=== PATIENT | male | born 1970 | race Caucasian/White ===

== ENCOUNTER 2019-04-12 10:20 | Emergency (ER) | payer MEDICAID ==
[~2019-04-12] VITALS: Ht 175.2 cm; Wt 83.9 kg
[~2019-04-12 10:20] MED LIST: LOPRESSOR25 MG PO; PREDNICOT10 MG PO; TOPROL XL25 MG PO; ZESTRIL10 MG PO
[2019-04-12 11:29] LABS: BASO % 0.5 % (0.0-1.0); EOS # 0.1 10*3/uL (0.0-0.4); EOS % 1.5 % (1.0-4.0); HEMATOCRIT 41.4 % (42.0-52.0); HEMOGLOBIN 13.7 g/dl (14.0-18.0); LYMPH # 2.3 10*3/uL (1.3-4.4); LYMPH % 29.2 % (27.0-41.0); MEAN CELL VOLUME 95.6 fl (80.0-94.0); MEAN CORPUSCULAR HGB 31.6 pg (27.0-31.0); MEAN CORPUSCULAR HGB CONC 33.1 g/dl (33.0-37.0); MEAN PLATELET VOLUME 9.3 fl (9.6-12.3); MONO # 0.7 10*3/uL (0.1-1.0); MONO % 8.6 % (3.0-9.0); NEUT # 4.8 10*3/uL (2.3-7.9); NEUT % 60.1 % (47.0-73.0); PLATELET COUNT AUTOMATED 289 10*3/uL (130-400); RED BLOOD COUNT 4.33 10*6/uL (4.50-5.90); RED CELL DISTRI WIDTH 13.2 % (0-14.5); WHITE BLOOD COUNT 7.9 10*3/uL (4.8-10.8)
[2019-04-12 11:44] LABS: ALBUMIN 3.9 gm/dl (3.1-4.5); ALKALINE PHOSPHATASE 88 U/L (45-117); BUN 12 mg/dl (7-24); CHLORIDE 107 mmol/L (98-107); LIPASE 105 U/L (73-393); POTASSIUM 3.9 mmol/L (3.5-5.1); SGOT/AST 7 IU/L (3-35); SGPT/ALT 17 U/L (12-78); SODIUM 140 mmol/L (136-145); TOTAL PROTEIN 7.4 gm/dL (6.4-8.2)
[2019-04-12 13:03] LABS: BILIRUBIN 1+ (NEGATIVE); BLOOD NEGATIVE (NEGATIVE); CLARITY CLOUDY (CLEAR); COLOR YELLOW (YELLOW); GLUCOSE NEGATIVE (NEGATIVE); KETONE NEGATIVE (NEGATIVE); LEUKO ESTERASE NEGATIVE (NEGATIVE); NITRITE NEGATIVE (NEGATIVE); SPECIFIC GRAVITY >= 1.030 (1.005-1.030); UROBILINOGEN 0.2 E.U./dl (0.2-1.0)
[2019-04-12 13:19] LABS: BACTERIA 1+; MUCOUS 3+
== END 2019-04-12 16:25 | disposition home or self-care (01) ==
LOC: ED 10:20
PROVIDERS: Emergency Medicine
DX: R10.13 Epigastric pain (principal); R63.4 Abnormal weight loss; I10 Essential (primary) hypertension; Z79.899 Other long term (current) drug therapy

== ENCOUNTER → 2019-04-18 | Day surgery (SDC) | payer MEDICAID ==
[~2019-04-18] VITALS: Ht 175.2 cm; Wt 83.9 kg
--- NOTE | ~2019-04-18 | O ---
[place], [place] OPERATIVE NOTE NAME: PETRONA UGALDE UNIT #: [id number] ROOM: DOCTOR: MARGIE SANTACRUZ,ADITYA BIRTHDATE: [birth year] DOS: 04/18/2019 INDICATIONS: The patient has presented with dysphagia, unable to swallow beyond his lower esophagus, food gets stuck. He is having the sensation of lower esophageal pressure. PROCEDURE: Today's procedure part of investigation is esophagoscopy plus biopsy. PREMEDICATION: Propofol. SCOPE: Olympus forward-viewing gastroscope Q10 video. REPORT: After putting the patient in left lateral position and application of lubricant to the scope, the scope was introduced. Thereafter, under direct visualization, advanced through the upper thoracic towards distal esophagus at esophagogastric junction high-grade stricture was noticed, passage of the scope is quite difficult and securities attorney to perforation. We need a narrow pediatric scope. Therefore, after a biopsy was obtained. The patient extubated, tolerated the procedure well. IMPRESSION: Distal esophageal stricture, status post biopsy. This area appears to be a dysplastic cell in it. Therefore, we could not negotiate the scope into the gastric pouch. After multiple tries, the patient extubated, tolerated the procedure well. IMPRESSION: High-grade distal esophageal stricture, ruling out dysplastic cell, status post biopsy. PLAN AND DISCUSSION: We are going to organize another endoscopic assessment with super narrow pediatric scope in another institution, diagnosis under investigation. ADITYA HANSON MD CM:OPRECORD:OPERATIVE NOTE [id number] ADITYA HANSON MD 04/18/19 1607 interface
[2019-04-18 13:29] VITALS: BP 145/86
[2019-04-18 14:15] VITALS: BP 116/77
[2019-04-18 15:44] VITALS: BP 138/87
[2019-04-18 15:59] VITALS: BP 151/91
[2019-04-18 16:14] VITALS: BP 146/91
== END | disposition home or self-care (01) ==
LOC: SDC 04-16 14:00
DX: K22.2 Esophageal obstruction (principal); I10 Essential (primary) hypertension; E66.9 Obesity, unspecified; Z68.34 Body mass index [BMI] 34.0-34.9, adult; Z79.899 Other long term (current) drug therapy; Z82.49 Family history of ischemic heart disease and other diseases of the circulatory system; Z80.8 Family history of malignant neoplasm of other organs or systems

== ENCOUNTER 2019-06-28 10:46 | Emergency (ER) | payer MEDICAID ==
[~2019-06-28] VITALS: Ht 175.2 cm; Wt 59.0 kg
[2019-06-28] MEDS ORDERED: PREDNISONE20 M1 PO (11:18)
== END 2019-06-28 11:28 | disposition home or self-care (01) ==
LOC: ED 10:46
DX: L27.0 Generalized skin eruption due to drugs and medicaments taken internally (principal); T36.1X5A Adverse effect of cephalosporins and other beta-lactam antibiotics, initial encounter; I10 Essential (primary) hypertension; Y92.89 Other specified places as the place of occurrence of the external cause

== ENCOUNTER 2019-07-07 06:59 | Emergency (ER) | payer MEDICAID ==
[~2019-07-07] VITALS: Ht 175.2 cm; Wt 54.4 kg
[~2019-07-07 06:59] MED LIST changes: +PREDNISONE20 M1 PO
[2019-07-07 08:01] LABS: BASO % 0.1 % (0.0-1.0); EOS % 0.1 % (1.0-4.0); HEMATOCRIT 39.4 % (42.0-52.0); LYMPH # 1.1 10*3/uL (1.3-4.4); LYMPH % 12.4 % (27.0-41.0); MEAN CELL VOLUME 89.5 fl (80.0-94.0); MEAN CORPUSCULAR HGB 29.5 pg (27.0-31.0); MEAN PLATELET VOLUME 8.9 fl (9.6-12.3); MONO # 0.9 10*3/uL (0.1-1.0); MONO % 10.1 % (3.0-9.0); NEUT # 6.9 10*3/uL (2.3-7.9); NEUT % 76.9 % (47.0-73.0); PLATELET COUNT AUTOMATED 375 10*3/uL (130-400); RED CELL DISTRI WIDTH 14.1 % (0-14.5); WHITE BLOOD COUNT 8.9 10*3/uL (4.8-10.8)
[2019-07-07 08:11] LABS: ACT PARTIAL THROMBO TIME 30.2 SECONDS (20.0-32.1)
[2019-07-07 08:17] LABS: ALKALINE PHOSPHATASE 653 U/L (45-117); BUN 14 mg/dl (7-24); CHLORIDE 95 mmol/L (98-107); CREATININE 0.83 mg/dL (0.70-1.30); LIPASE 244 U/L (73-393); POTASSIUM 3.9 mmol/L (3.5-5.1); SGOT/AST 40 IU/L (3-35); SGPT/ALT 93 U/L (12-78); SODIUM 132 mmol/L (136-145); TOTAL PROTEIN 6.8 gm/dL (6.4-8.2)
[2019-07-07 08:18] LABS: TROPONIN I < 0.015 ng/ml (<0.045)
== END 2019-07-07 09:10 | disposition left against medical advice (07) ==
LOC: ED 06:59
PROVIDERS: Emergency Medicine
DX: R11.2 Nausea with vomiting, unspecified (principal); C15.9 Malignant neoplasm of esophagus, unspecified; C16.9 Malignant neoplasm of stomach, unspecified; I10 Essential (primary) hypertension; Z88.1 Allergy status to other antibiotic agents

== ENCOUNTER 2019-07-12 07:36 | Emergency (ER) | payer OTHER ==
[~2019-07-12] VITALS: Ht 175.2 cm; Wt 54.4 kg
== END 2019-07-12 08:55 | disposition home or self-care (01) ==
LOC: ED 07:36
DX: T82.594A Other mechanical complication of infusion catheter, initial encounter (principal); I10 Essential (primary) hypertension; C15.9 Malignant neoplasm of esophagus, unspecified; C16.9 Malignant neoplasm of stomach, unspecified; C26.0 Malignant neoplasm of intestinal tract, part unspecified; Z88.1 Allergy status to other antibiotic agents; Y84.8 Other medical procedures as the cause of abnormal reaction of the patient, or of later complication, without mention of misadventure at the time of the procedure; Y92.89 Other specified places as the place of occurrence of the external cause

== ENCOUNTER 2019-09-28 08:56 | Emergency (ER) | payer OTHER ==
[~2019-09-28] VITALS: Wt 49.4 kg
== END 2019-09-28 09:38 | disposition expired ==
LOC: ED 08:56
DX: C15.9 Malignant neoplasm of esophagus, unspecified (principal); J96.90 Respiratory failure, unspecified, unspecified whether with hypoxia or hypercapnia; I10 Essential (primary) hypertension; Z88.8 Allergy status to other drugs, medicaments and biological substances